=== PATIENT | female | born 1980 | race Caucasian/White ===

== ENCOUNTER 2017-12-09 16:37 | Emergency (ER) | payer BC ==
[2017-12-09 17:20] VITALS: BP 130/92; PULSE 82; TEMP 98.4; BMI 24.5
[2017-12-09] MEDS ORDERED: DEXAMETHASONE SOD PHOSPHATE 10 MG/1 ML VIAL IM ONE (17:52)
[2017-12-09] MEDS ORDERED: DEXAMETHASONE SOD PHOSPHATE 10 MG/1 ML VIAL ONE (17:53)
--- NOTE | 2017-12-09 17:58 | PDOC ---
History of Present Illness - General Chief Complaint: Rash Stated Complaint: RASH Time Seen by Provider: 12/09/17 17:49 History Source: Patient Exam Limitations: Clinical Condition - History of Present Illness Initial Comments: 12/09/17 17:53 Patient with no significant past medical history present with complain of diffuse body rash which is very itchy and worsen with scratching. Patient feels she might have ALLERGY reaction but not show what's causing her reaction. Patient described rash as red and spreading. Patient reports she had same symptoms couple months ago and was treated with Decadron and prednisone which resolved her symptoms. Patient denies shortness of breath, choking sensation, swelling lips. Patient denies any other symptoms Timing/Duration: other (2 weeks) Past History - Past Medical History Allergies/Adverse Reactions: Allergies Allergy/AdvReac Type Severity Reaction Status Date / Time No Known Allergies Allergy Verified 12/09/17 17:16 Home Medications: Ambulatory Orders Hydroxyzine HCl 25 mg PO BID PRN #10 tablet 12/09/17 Prednisone [Deltasone] 20 mg PO BID 5 Days #10 tablet 12/09/17 CVA: No COPD: No DVT: No Dementia: No Diabetes: No - Immunization History Immunization Up to Date: Yes - Suicide/Smoking/Psychosocial Hx Smoking History: Never smoked Information on smoking cessation initiated: No Hx Alcohol Use: No Drug/Substance Use Hx: No Substance Use Type: None Review of Systems - Review of Systems Able to Perform ROS?: Yes Is the patient limited Lithuanian proficient: No Constitutional: No: Chills, Diaphoresis, Fever, Loss of Appetite, Malaise, Night Sweats, Weakness, Weight Stable, Unintentional Wgt. Loss, Unexplained wgt Loss, Other HEENTM: No: Eye Pain, Blurred Vision, Tearing, Recent change in vision, Double Vision, Cataracts, Ear Pain, Ocular Prothesis, Ear Discharge, Nose Pain, Nose Congestion, Tinnitus, Nose Bleeding, Hearing Loss, Throat Pain, Throat Swelling , Mouth Pain, Dental Problems, Difficulty Swallowing, Mouth Swelling, Other Respiratory: No: Cough, Orthopnea, Shortness of Breath, SOB with Exertion, SOB at Rest, Stridor, Wheezing, Productive cough, Hemoptysis, Other Cardiac (ROS): No: Chest Pain, Edema, Irregular Heart Rate, Lightheadedness, Palpitations, Syncope, Chest Tightness, Other ABD/GI: No: Abdominal Distended, Abd. Pain w/ defecation, Blood Streaked Bowels , Constipated, Diarrhea, Difficulty Swallowing, Nausea, Poor Appetite, Poor Fluid Intake, Rectal Bleeding, Vomiting, Indigestion, Abdominal cramping, Tarry Stools, Other Musculoskeletal: No: Back Pain, Gout, Joint Pain, Joint Swelling, Muscle Pain, Muscle Weakness, Neck Pain, Joint Stiffness, Other Integumentary: Yes: Pruritus, Rash (all over the body) All Other Systems: Reviewed and Negative *Physical Exam - Vital Signs Last Vital Signs Temp Pulse Resp BP Pulse Ox 98.4 F 82 16 130/92 100 12/09/17 17:17 12/09/17 17:17 12/09/17 17:17 12/09/17 17:17 12/09/17 17:17 - Physical Exam Comments: 12/09/17 17:55 GENERAL: Well developed, well nourished. Awake and alert. No acute distress. HEENT: Normocephalic, atraumatic. PERRLA, EOMI. No conjunctival pallor. Sclera are non- icteric. Moist mucous membranes. Oropharynx is clear. NECK: Supple. Full ROM. No JVD. Carotid pulses 2+ and symmetric, without bruits. No thyromegaly. No lymphadenopathy. CARDIOVASCULAR: Regular rate and rhythm. No murmurs, rubs, or gallops. Distal pulses are 2+ and symmetric. PULMONARY: No evidence of respiratory distress. Lungs clear to auscultation bilaterally. No wheezing, rales or rhonchi. ABDOMINAL: Soft. Non-tender. Non-distended. No rebound or guarding. No organomegaly. Normoactive bowel sounds. MUSCULOSKELETAL Normal range of motion at all joints. No bony deformities or tenderness. No CVA tenderness. EXTREMITIES: No cyanosis. No clubbing. No edema. No calf tenderness. SKIN: Diffuse urticarial rash all over the body with aspirations NEUROLOGICAL: Alert, awake, appropriate. Cranial nerves 2-12 intact. No deficits to light touch and temperature in face, upper extremities and lower extremities. No motor deficits in the in face, upper extremities and lower extremities. Normoreflexic in the upper and lower extremities. Normal speech. Toes are down- going bilaterally. Gait is normal without ataxia. PSYCHIATRIC: Cooperative. Good eye contact. Appropriate mood and affect. General Appearance: Yes: Nourished, Appropriately Dressed. No: Apparent Distress Medical Decision Making - Medical Decision Making 12/09/17 17:56 Patient with no significant past medical history present with complain of 2 weeks history of persistent itchy urticarial rash all over the body. Symptoms likely ALLERGIC dermatitis. Decadron 10 mg IM given. Patient is stable for home discharge on prednisone and hydroxyzine is in with dermatology follow-up *DC/Admit/Observation/Transfer Diagnosis at time of Disposition: Urticaria, Dermatitis - Discharge Dispostion Disposition: HOME Condition at time of disposition: Stable - Prescriptions Prescriptions: Hydroxyzine HCl 25 mg PO BID PRN #10 tablet PRN Reason: rash and itching Prednisone [Deltasone] 20 mg PO BID 5 Days #10 tablet - Referrals Referrals: Kiko Cerrato MD [Non Staff, Medical] - - Patient Instructions Printed Discharge Instructions: DI for Hives, Urticaria (Alternative Therapy) Additional Instructions: Take medication as prescribed for rash. Use home topical medication as prescribed for the rash. Follow-up with dermatology if no improvement in 3 days - Post Discharge Activity
== END 2017-12-09 18:04 | disposition home or self-care (01) ==
LOC: JERFT 16:37
PROC: 3E0233Z Introduction of Anti-inflammatory into Muscle, Percutaneous Approach (ICD-10-PCS; principal; 2017-12-09)
DX: L30.9 Dermatitis, unspecified (principal); L50.9 Urticaria, unspecified
CPT/HCPCS: 99281-25; J1100

== ENCOUNTER 2021-10-07 20:14 | Emergency (ER) | payer BC, OTHER ==
[2021-10-07 21:01] VITALS: BP 133/85; PULSE 72; TEMP 98.8; BMI 26.6
[2021-10-07] MEDS ORDERED: TRIAMCINOLONE ACET 40MG/1ML VIAL ONE (22:26)
[2021-10-07] MEDS ORDERED: TRIAMCINOLONE ACET 40MG/1ML VIAL IM ONE (22:26)
== END 2021-10-07 22:42 | disposition home or self-care (01) ==
LOC: JERFT 20:14
PROC: 3E023GC Introduction of Other Therapeutic Substance into Muscle, Percutaneous Approach (ICD-10-PCS; principal; 2021-10-07)
DX: L30.8 Other specified dermatitis (principal)
CPT/HCPCS: 99284-25

== ENCOUNTER 2022-12-14 17:43 | Emergency (ER) | payer OTHER ==
[2022-12-14 17:58] VITALS: BP 134/88; PULSE 84; RESP 18; TEMP 98.3; BMI 25.7
[2022-12-14] MEDS ORDERED: DEXAMETHASONE SOD PHOSPHATE 10 MG/1 ML VIAL IM ONE (18:17)
[2022-12-14] MEDS ORDERED: DEXAMETHASONE SOD PHOSPHATE 10 MG/1 ML VIAL ONE (19:50)
== END 2022-12-14 20:05 | disposition home or self-care (01) ==
LOC: JERFT 17:43 → JER 17:43 → JERFT 20:05
PROC: 3E023GC Introduction of Other Therapeutic Substance into Muscle, Percutaneous Approach (ICD-10-PCS; principal; 2022-12-14)
DX: R21 Rash and other nonspecific skin eruption (principal); L23.7 Allergic contact dermatitis due to plants, except food
CPT/HCPCS: 99284-25; J1100

== ENCOUNTER 2023-03-04 13:09 | Emergency (ER) | payer OTHER ==
[2023-03-04 13:17] VITALS: BMI 26.6
[2023-03-04 14:29] VITALS: BP 134/89; PULSE 86; RESP 19; TEMP 98.4
== END 2023-03-04 14:31 | disposition home or self-care (01) ==
LOC: JERFT 13:09
DX: L50.0 Allergic urticaria (principal); T78.40XA Allergy, unspecified, initial encounter; R21 Rash and other nonspecific skin eruption
CPT/HCPCS: 99283-25

== ENCOUNTER 2023-04-03 19:10 | Emergency (ER) | payer OTHER ==
[2023-04-03 19:21] VITALS: BP 160/102; PULSE 77; RESP 18; TEMP 97.5; BMI 26.6
[2023-04-03] MEDS ORDERED: MAGNESIUM CITRATE 300 ML BOTTLE PO ONE (21:28)
== END 2023-04-03 22:28 | disposition home or self-care (01) ==
LOC: JERFT 19:10
DX: K59.00 Constipation, unspecified (principal)
CPT/HCPCS: 99283-25

== ENCOUNTER 2023-10-13 18:22 | Emergency (ER) | payer OTHER ==
[2023-10-13 18:30] VITALS: BP 137/90; PULSE 81; RESP 18; TEMP 98.1; BMI 27.4
[2023-10-13] MEDS ORDERED: DEXAMETHASONE SOD PHOSPHATE 10 MG/1 ML VIAL ONE (19:29)
[2023-10-13] MEDS: DEXAMETHASONE SOD PHOSPHATE 10 MG/1 ML VIAL IM ONE (19:31)
== END 2023-10-13 20:03 | disposition home or self-care (01) ==
LOC: JERFT 18:22
PROC: 3E023GC Introduction of Other Therapeutic Substance into Muscle, Percutaneous Approach (ICD-10-PCS; principal; 2023-10-13)
DX: L25.5 Unspecified contact dermatitis due to plants, except food (principal)
CPT/HCPCS: 96372; 99284-25; J1100

== ENCOUNTER 2024-05-14 04:47 | Emergency (ER) | payer OTHER ==
[2024-05-14 04:52] VITALS: BP 152/102; PULSE 83; RESP 18; TEMP 98; BMI 27.4
[2024-05-14] MEDS ORDERED: ACETAMINOPHEN INJECTION 100 ML ONE (05:42)
[2024-05-14] MEDS ORDERED: METOCLOPRAMIDE HCL INJECTION 10 MG/2 ML VIAL ONE (05:42)
[2024-05-14] MEDS ORDERED: ONDANSETRON 4 MG/2 ML VIAL ONE (05:42)
[2024-05-14] MEDS ORDERED: MECLIZINE HCL 25 MG TABLET (FP) ONE (05:42)
[2024-05-14] MEDS ORDERED: FAMOTIDINE 20 MG/50 ML IVPB 20 MG/50 ML MG IVPB ONE (05:42)
[2024-05-14] MEDS: MECLIZINE HCL 25 MG TABLET (FP) PO ONE (05:51)
[2024-05-14] MEDS: METOCLOPRAMIDE HCL INJECTION 10 MG/2 ML VIAL IVPB ONE (05:52)
[2024-05-14] MEDS: SODIUM CHLORIDE 1,000 ML IV STA (05:52)
[2024-05-14] MEDS: ONDANSETRON 4 MG/2 ML VIAL IVPUSH ONE (05:52)
[2024-05-14] MEDS: FAMOTIDINE 20 MG/50 ML IVPB 20 MG/50 ML MG IVPB ONE (05:52)
[2024-05-14] MEDS: ACETAMINOPHEN 1000 MG/100 ML BAG IVPB ONE (05:53)
[2024-05-14 06:26] LABS: INR 1.02 (0.83-1.09); PROTHROMBIN TIME (PATIENT) 11.7 SEC (9.7-13.0)
[2024-05-14 06:36] LABS: POTASSIUM 4.2 mmol/L (3.5-5.1)
[2024-05-14 06:38] LABS: ALBUMIN 3.7 g/dl (3.4-5.0); CALCIUM 9.4 mg/dL (8.5-10.1)
[2024-05-14 06:42] LABS: BASO % 1.1 % (0-2.0); CREATININE 0.7 mg/dL (0.55-1.3); EOS % 8.7 % (0-4.5); HEMOGLOBIN 14.1 GM/dL (10.7-15.3); LYMPH % 41.4 % (8-40); MCH 29.6 pg (25.7-33.7); MCHC 32.8 g/dl (32.0-36.0); MEAN CELL VOLUME 90.3 fl (80-96); MEAN PLT VOLUME 9.1 fl (7.5-11.1); MONO % 8.8 % (3.8-10.2); PLATELET COUNT 315 10^3/uL (134-434); RBC 4.77 M/mm3 (3.60-5.2); RDW 13.5 % (11.6-15.6); WHITE BLOOD COUNT 7.6 K/mm3 (4.0-10.0)
[2024-05-14 06:43] LABS: BILIRUBIN,TOTAL 0.5 mg/dL (0.2-1); TOT PROT 7.5 g/dl (6.4-8.2)
[2024-05-14 08:28] LABS: ACTIVATED PTT 33.9 SECONDS (25.2-36.5)
== END 2024-05-14 08:51 | disposition home or self-care (01) ==
LOC: JER 04:47
PROC: 3E033GC Introduction of Other Therapeutic Substance into Peripheral Vein, Percutaneous Approach (ICD-10-PCS; principal; 2024-05-14)
PROC: 3E033NZ Introduction of Analgesics, Hypnotics, Sedatives into Peripheral Vein, Percutaneous Approach (ICD-10-PCS; 2024-05-14)
PROC: 3E033GC Introduction of Other Therapeutic Substance into Peripheral Vein, Percutaneous Approach (ICD-10-PCS; 2024-05-14)
PROC: 3E033GC Introduction of Other Therapeutic Substance into Peripheral Vein, Percutaneous Approach (ICD-10-PCS; 2024-05-14)
PROC: 3E0337Z Introduction of Electrolytic and Water Balance Substance into Peripheral Vein, Percutaneous Approach (ICD-10-PCS; 2024-05-14)
DX: H81.10 Benign paroxysmal vertigo, unspecified ear (principal); R10.13 Epigastric pain; R11.0 Nausea; Z20.822 Contact with and (suspected) exposure to COVID-19
CPT/HCPCS: 0241U-QW; 36415; 71046-TC-FY; 80053; 84439; 84443; 84484; 84703; 85025; 85610; 85730; 93005; 93010; 99285-25; J0131

== ENCOUNTER 2024-09-27 11:47 | Emergency (ER) | payer OTHER ==
[2024-09-27 11:54] VITALS: BMI 27.4
[2024-09-27] MEDS ORDERED: MAG HYDROX/AL HYDROX/SIMETH 30 ML UNIT-DOSE CUP ONE (12:49)
[2024-09-27 12:53] LABS: ABSOLUTE IMMATURE GRANULOCYTES 0.01 x10^3/uL (0.0-0.031); BASOPHILS # 0.11 x10^3/uL (0.01-0.08); EOSINOPHIL % 10.2 % (0.7-5.8); EOSINOPHILS # 0.78 x10^3/uL (0.04-0.36); MCHC 33.3 g/dl (32.2-35.5); MEAN CELL VOLUME 89.3 fl (79.4-94.8); MEAN PLT VOLUME 10.3 fl (9.4-12.3); MONOCYTE # 0.75 x10^3/uL (0.24-0.86); MONOCYTE % 9.8 % (4.7-12.5); PLATELET COUNT 336 x10^3/uL (182-369)
[2024-09-27] MEDS: MAG HYDROX/AL HYDROX/SIMETH 30 ML UNIT-DOSE CUP PO ONE (12:55)
[2024-09-27] MEDS ORDERED: ASPIRIN 81 MG CHEWABLE TABLETS ONE (12:57)
[2024-09-27] MEDS: ASPIRIN 325 MG TABLET PO ONE (13:03)
[2024-09-27 13:24] LABS: POTASSIUM 3.8 mmol/L (3.5-5.1)
[2024-09-27 13:26] LABS: CALCIUM 10.3 mg/dL (8.5-10.1)
[2024-09-27 13:27] LABS: BLOOD UREA NITROGEN 14.7 mg/dL (7-18)
[2024-09-27 13:30] LABS: CREATININE 0.7 mg/dL (0.55-1.3)
[2024-09-27 13:31] LABS: BILIRUBIN,TOTAL 0.6 mg/dL (0.2-1)
[2024-09-27 13:43] VITALS: BP 148/97; PULSE 79; RESP 20; TEMP 98.1
[2024-09-27 14:35] LABS: HCV DIAGNOSTIC IN-HOUSE W/RFLX NON-REACTIVE (NONREACTIVE)
[2024-09-27 14:36] LABS: HIV INTERPRETATION NEGATIVE (NEGATIVE)
== END 2024-09-27 14:34 | disposition home or self-care (01) ==
LOC: JER 11:47
DX: R10.13 Epigastric pain (principal); R42 Dizziness and giddiness; R11.0 Nausea; R07.89 Other chest pain; I10 Essential (primary) hypertension
CPT/HCPCS: 36415; 80053; 84484; 85025; 86803; 87389; 93005; 93010; 99284-25

== ENCOUNTER 2024-12-30 13:06 | Emergency (ER) | payer OTHER ==
[2024-12-30 13:17] VITALS: BP 149/86; PULSE 65; RESP 20; TEMP 98.1; BMI 24.2
[2024-12-30] MEDS ORDERED: ACETAMINOPHEN INJECTION 100 ML ONE (13:36)
[2024-12-30] MEDS: LIDOCAINE 4% PATCH TP ONE (13:45)
[2024-12-30] MEDS: ACETAMINOPHEN 500 MG TABLET (FP) PO ONE (13:45)
[2024-12-30 13:57] LABS: ABSOLUTE IMMATURE GRANULOCYTES 0.01 x10^3/uL (0.0-0.031); BASOPHILS # 0.11 x10^3/uL (0.01-0.08); EOSINOPHIL % 8.8 % (0.7-5.8); EOSINOPHILS # 0.74 x10^3/uL (0.04-0.36); MCHC 32.7 g/dl (32.2-35.5); MEAN CELL VOLUME 91.5 fl (79.4-94.8); MEAN PLT VOLUME 10.6 fl (9.4-12.3); MONOCYTE # 0.73 x10^3/uL (0.24-0.86); MONOCYTE % 8.7 % (4.7-12.5); RDW 13.1 % (12.2-17.1)
[2024-12-30 14:25] LABS: GLUCOSE,RANDOM 103.0 mg/dL (74-106)
[2024-12-30 14:26] LABS: TOT PROT 8.0 g/dl (6.4-8.2)
[2024-12-30 14:27] LABS: CO2 22.0 mmol/L (21-32)
[2024-12-30 14:28] LABS: ALK PHOS 58.0 U/L (40-150)
[2024-12-30 14:31] LABS: CREATININE 0.8 mg/dL (0.55-1.3); SGOT/AST 17.0 U/L (5-34); SGPT/ALT 25.0 U/L (0-55)
[2024-12-30 14:52] LABS: HIV INTERPRETATION NEGATIVE (NEGATIVE)
[2024-12-30 14:53] LABS: HCV DIAGNOSTIC IN-HOUSE W/RFLX NON-REACTIVE (NONREACTIVE)
[2024-12-30] MEDS ORDERED: KETOROLAC TROMETHAMINE 15 MG/ML VIAL ONE (15:00)
[2024-12-30] MEDS: KETOROLAC TROMETHAMINE 15 MG/ML VIAL IVPUSH ONE (15:05)
[2024-12-30] MEDS ORDERED: LIDOCAINE PATCH REMOVAL MC ONE (22:00)
== END 2024-12-30 15:09 | disposition home or self-care (01) ==
LOC: JER 13:06
PROC: 3E0333Z Introduction of Anti-inflammatory into Peripheral Vein, Percutaneous Approach (ICD-10-PCS; principal; 2024-12-30)
DX: R07.89 Other chest pain (principal); M54.50 Low back pain, unspecified; R05.9 Cough, unspecified; M54.2 Cervicalgia
CPT/HCPCS: 36415; 71046-TC-FY; 80053; 84484; 84703; 85025; 86803; 87389; 87637-QW; 93005; 93010; 99285-25